=== PATIENT | male | born 1990 | race African-American/Black ===

== ENCOUNTER 2023-04-04 13:37 | Emergency (ER) | payer SELFPAY ==
[2023-04-04] MEDS ORDERED: Ibuprofen 600 MG Tab PO ONE (15:02)
[2023-04-04] MEDS ORDERED: Ondansetron 4 MG Tab.DIS PO ONE (15:02)
[2023-04-04] MEDS ORDERED: Acetaminophen 500 MG Tab PO ONE (15:02)
== END 2023-04-04 16:22 | disposition home or self-care (01) ==
LOC: MW.ED 13:37
DX: S06.0XAA Concussion with loss of consciousness status unknown, initial encounter (principal); X58.XXXA Exposure to other specified factors, initial encounter
CPT/HCPCS: 70450; 99283; A9270